=== PATIENT | male | born 1965 | race Hispanic/Latino ===

== ENCOUNTER → 2024-12-21 | Outpatient (CLI) | payer OTHER ==
--- NOTE | 2024-12-21 12:55 | HMCIMG ---
PROCEDURE: Esophagram. CLINICAL HISTORY: Oropharyngeal dysphagia TECHNIQUE: Oral ingestion of barium and effervescent crystals was performed and multiple fluoroscopic images were obtained to evaluate the esophagus. FLUOROSCOPY TIME: 0.9 minutes pulsed fluoroscopy. FINDINGS: The esophagus demonstrates normal motility. The mucosa is normal without evidence of mass, ulceration, or stricture. There is grade 1 esophageal reflux. There is no hiatal hernia. A barium tablet easily passed through the esophagus into the stomach without hold up. Real-time visualization of swallowing were performed and demonstrated normal swallowing mechanism, normal contour, and normal mucosa. The stomach has normal size shape and configuration the rugal fold appears to be normal the duodenal bulb and duodenal sweep and upper jejunum appears to be normal. IMPRESSION: Grade 1 esophageal reflux otherwise a normal esophagram Due to dysphagia would recommend Modified barium swallow.
== END | disposition home or self-care (01) ==
LOC: RAH 09:18
PROVIDERS: ATTEND Family Medicine
DX: K21.9 Gastro-esophageal reflux disease without esophagitis (principal); R13.12 Dysphagia, oropharyngeal phase
CPT/HCPCS: 74220